=== PATIENT | male | born 1995 | race Caucasian/White ===

== ENCOUNTER 2022-05-06 10:00 | Outpatient (CLI) | payer OTHER ==
--- NOTE | 2022-05-06 12:42 | MRI Report ---
PROCEDURE: Brain W/O INDICATIONS: HEADACHE TECHNIQUE: Noncontrast axial T1 spin echo, axial T2 fast spin echo, sagittal and axial FLAIR, coronal T2 fast sp in echo, axial gradient echo, axial diffusion and ADC through the brain. COMPARISON: None. FINDINGS: Image quality: Excellent. CSF Spaces: Basal cisterns are patent. No extra-axial fluid collections. Ventricles are normal in size and shape. Brain: No intracranial masses or hemorrhage. Ken/white matter interface is normal. Brainstem appe ars normal. Diffusion-weighted images demonstrate no acute ischemic insult. No chronic ischemic ins ults. Normal intravascular flow voids are present. Skull and face: Calvarium has normal marrow signal. Orbits appear normal. Sinuses: The left maxillary sinus mucus retention cyst is seen. The paranasal sinuses are otherwise r elatively clear. No significant abnormal fluid can be seen within the mastoid air cells. IMPRESSION: Unremarkable brain MRI, without a cause of headache identified. Reviewed by: Fredi Grant MD on 05/06/2022 11:41 AM [facility] Approved by: Fredi Grant MD on 05/06/2022 11:41 AM [facility] Station ID: [id number]
== END 2022-05-06 10:01 | disposition home or self-care (01) ==
LOC: DI 10:00
PROVIDERS: ATTEND Family Medicine
DX: R51.9 Headache, unspecified (principal)

== ENCOUNTER 2022-10-15 20:39 | Outpatient (CLI) | payer OTHER | END 2022-10-15 20:40 | disposition home or self-care (01) | LOC: SC 20:39 | PROVIDERS: ATTEND Nurse Practitioner Family | DX: F32.A Depression, unspecified (principal); G47.33 Obstructive sleep apnea (adult) (pediatric) | CPT/HCPCS: 95810 ==

== ENCOUNTER 2022-10-22 09:37 | Outpatient (CLI) | payer OTHER ==
[2022-10-22 10:29] VITALS: BP 148/90
--- NOTE | 2022-10-22 10:29 | SLEEP CARE CONSULTATION ---
Information from patient questionnaire entered by Amalia Mcclure. I have reviewed and concur with the information entered by Amalia Mcclure. This document represents the service I personally performed and the decisions made by , Mariana Rogers ARNP. History of Present Illness Service Date and Time: 10/22/2022 0937 Initial [place] Sleepiness Scale score: 9 (09/25/22) Current [place] Sleepiness Scale score: 14 (10/22/22) Additional HPI information: NOAM WHITLEY returns for follow up and results of the recently performed polysomnography. I explained the pathophysiology behind obstructive sleep apnea. We then spent quite a bit of time discussing different treatment options. For mild obstructive sleep apnea, surgery and oral appliance are alternatives to nasal CPAP therapy but in moderate or severe cases, nasal CPAP is the most effective and reliable treatment. Because apnea is primarily in supine position, then positional management therapy could be effective. Methods discussed such as positioning with pillows to prevent supine sleep. I reviewed the impact of weight changes on sleep apnea and strongly recommended losing weight. Patient was cautioned about risks of drowsy driving until sleepiness symptoms resolve. Sleep Study - Results Type of Sleep Study: Polysomnography (COMPLETED 10-15-22) Prior sleep studies: No Polysomnography/Home Sleep Study results: IMPRESSION: The quality of the study is good. The patient had normal sleep efficiency. Except for mild sleep fragmentation, the sleep architecture was also normal. Respiratory monitoring showed mild obstructive sleep apneahypopnea (AHI = 5.3) associated with frequent arousals, oxyhemoglobin desaturation and mild hypoxia (hilda oxygen saturation of 87%). The respiratory events occurred almost exclusively during supine sleep (supine AHI = 6.9; non-supine = 2.05). Snore was moderate to loud in intensity. There was no significant periodic leg movement of sleep. Cardiac rhythm was normal sinus rhythm without significant arrhythmia. No abnormal behavior (parasomnia) observed during the night. Allergies and Home Medications Drug allergies reviewed: Yes (NKDA) Home medication list reviewed: Yes (increased gabapentin by 300 mg; med for acid reflux; steroid nasal spray) Review of Systems Review of systems same as previous: No (gastric reflux) Physical Exam Vital signs obtained and entered by: AMALIA Mortensen MA Blood Pressure: 148/90 (LEFT ARM) Cuff size: regular Heart Rate: 108 O2 Saturation: 97 Height: 6 ft 3 in Weight: 304 lb 12.8 oz Body Mass Index: 38.0 BMI Classification: Obese Impression and Plan 1. Obstructive Sleep Apnea-Hypopnea Syndrome, mild, with lowest oxygen saturation of 87% with RDI 13.9. Obviously this is the cause of the patients symptoms of unrefreshed sleep, and excessive daytime sleepiness. Positive pressure therapy could benefit hypertension, anxiety, depression and mood disorder (PTSD). Since patients apnea is primarily in supine position, patient advised to try positional therapy until he decided upon therapy and he agreed wi th plan. He is also advised to lose weight as this will reduce snoring and apnea. Follow up will be determined by his choice of therapy. 2. Obesity, unspecified. Currently patients BMI is 38.0. Obesity increases the risk of apnea, CPAP pressure requirements and overall health risks especially cardiovascular and diabetes. Thus patient is advised to lose weight. * Patient to discuss therapy choices with and call with his choice * Attempt to lose weight. * Avoid alcohol consumption near bedtime. * Avoid supine sleep * The patient is again cautioned about driving until sleepiness completely r esolves. * Return will be determined by his choice. Counseling Topics: Sleeping position, Weight loss health impact Visit Type: In Office Time Spent with Patient (minutes): 22 Provider Statement: I spent 100% of the Face to Face Visit with the patient with greater than 50% spent counseling the patient and coordination of care.
== END 2022-10-22 09:38 | disposition home or self-care (01) ==
LOC: SC 09:37
PROVIDERS: ATTEND Nurse Practitioner Family
DX: G47.33 Obstructive sleep apnea (adult) (pediatric) (principal); E66.9 Obesity, unspecified; Z68.38 Body mass index [BMI] 38.0-38.9, adult
CPT/HCPCS: 99212; 99213